=== PATIENT | male | born 1985 | race Caucasian/White ===

== ENCOUNTER 2019-06-10 19:50 | Emergency (ER) | payer OTHER, SELFPAY ==
[2019-06-10 20:20] VITALS: BP 144/77; PULSE 70; RESP 16; TEMP 36.6; O2SAT 98; BMI 22.6
--- NOTE | 2019-06-10 22:00 | ED_ITS ---
HPI - Anxiety General: Chief Complaint: Anxiety Stated Complaint: ANXIETY Time Seen by Provider: 06/10/19 21:51 History of Present Illness: Associated symptoms: Deny chest pain, chills, fever(s), headache(s), nausea or vomiting Review of Systems Const: Denies: fever, chills or body aches Eyes: Denies: change in vision or blurry vision ENMT: Denies: throat pain or nasal congestion Card: Denies: chest pain or shortness of breath on exertion Resp: Denies: shortness of breath, productive cough or non-productive cough GI: Denies: abdominal pain, nausea or vomiting : Denies: difficulty urinating Musc: Denies: extremity pain Skin/Breast: Denies: rash Neuro: Denies: headache Psych: Reports: anxiety; Denies: depression Sung/Lymph: Denies: easy bruising PFSH ED PFSH: Statuses (acute, chronic, etc) shown below reflect problem list status as previously entered and may not be historically accurate Social History Smoking and tobacco status: former smoker Physical Exam Const: COMMON NORMALS: no apparent distress, average body habitus and oriented x3 HENMT: COMMON NORMALS: normocephalic HEAD & SCALP: normal to inspection and normocephalic FACE & SINUS: normal facial exam Eye: COMMON NORMALS: conjunctivae normal GENERAL EYE: normal appearance of both eyes CONJUNCTIVA: Yes conjunctivae normal Neck/C-Spine: COMMON NORMALS: no JVD Chest: COMMONS NORMALS: inspection of chest normal Resp: COMMON NORMALS: normal respiratory effort and clear to auscultation bilaterally AUSCULTATION: clear to auscultation bilaterally Cardio: COMMON NORMALS: no JVD, regular rate and regular rhythm RATE: regular rate RHYTHM: regular rhythm GI: COMMON NORMALS: normal to inspection, nondistended, normoactive bowel sounds Extremity: COMMON NORMALS: normal to inspection and full ROM Neuro: COMMON NORMALS: oriented x3 Course Vital Signs: Vital signs: Vital Signs Temperature 97.8 F 06/10/19 20:20 Pulse Rate 60 06/10/19 22:36 Respiratory Rate 16 06/10/19 22:36 Blood Pressure 144/77 06/10/19 20:20 Pulse Oximetry 95 06/10/19 22:36 Discharge Plan Discharge Patient Disposition: Home, Self-Care Clinical Impression: Acute anxiety Condition: Stable Prescriptions: New sertraline 50 mg tablet 50 mg PO Q24H Qty: 14 RF: 0 No Action flecainide 100 mg tablet 100 mg PO BID RF: 0 Cartia XT 120 mg capsule,extended release 24hr 120 mg PO TID RF: 0 Discharge Orders: Discharge Order (Routine); Ordered 06/10/19 Ordered By: Bladimir Dao Patient Instructions: Generalized Anxiety Disorder (ED) Activity Restrictions/Additional Instructions: Patient take medication as prescribed. Follow-up with the primary care clinic in [place]. Can return here if problems persist. Discharge Date/Time: 06/10/19 22:36 Coding Level of Care Code ED Windshield Repair Technician for Damir Ray
[2019-06-10] MEDS: sertraline 50 mg Tablet PO (22:28)
[2019-06-10 22:36] VITALS: PULSE 60; RESP 16; O2SAT 95
== END 2019-06-10 22:36 | disposition home or self-care (01) ==
PROVIDERS: Emergency Provider Nurse Practitioner Family
DX: F41.9 Anxiety disorder, unspecified (principal); Z87.891 Personal history of nicotine dependence
CPT/HCPCS: 99281

== ENCOUNTER 2020-02-13 08:33 | Emergency (ER) | payer SELFPAY ==
[2020-02-13 08:38] VITALS: BP 131/79; PULSE 89; RESP 18; TEMP 36.4; O2SAT 98; BMI 23.0
[2020-02-13 08:49] VITALS: BP 131/79; PULSE 92; RESP 18; TEMP 36.8; O2SAT 99
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
[2020-02-13 08:55] VITALS: BP 136/84; PULSE 76; RESP 18; O2SAT 99
[2020-02-13] MEDS: HYDROcodone-acetaminophen 7.5-325 mg Tablet 1 TAB PO (09:22)
[2020-02-13 10:10] VITALS: BP 119/69; PULSE 76; RESP 18; TEMP 37; O2SAT 76
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
--- NOTE | 2020-03-01 08:08 | DCPLANNER ---
Patient had an appointment scheduled for 02.27.[address] Mario, ENT - patient did not attend appointment.
== END 2020-02-13 10:15 | disposition home or self-care (01) ==
PROVIDERS: Emergency Provider Physician Assistant; PCP Registered Nurse
DX: S00.03XA Contusion of scalp, initial encounter (principal); S05.12XA Contusion of eyeball and orbital tissues, left eye, initial encounter; S02.2XXA Fracture of nasal bones, initial encounter for closed fracture; Y04.2XXA Assault by strike against or bumped into by another person, initial encounter; F17.210 Nicotine dependence, cigarettes, uncomplicated
CPT/HCPCS: 12345; 70450; 70486; 72125; 99281; 99283

== ENCOUNTER 2020-05-25 13:23 | Emergency (ER) | payer SELFPAY ==
--- NOTE | 2020-05-25 13:45 | XRR_ITS ---
PROCEDURE INFORMATION: Exam: XR Right Shoulder Exam date and time: 05/25/2020 1:50 PM Age: 34 years old Clinical indication: Right; Patient HX: RT shoulder pain, arm gets numb TECHNIQUE: Imaging protocol: XR Right shoulder. Views: 2 or more views. COMPARISON: No relevant prior studies available. FINDINGS: Bones/joints: Negative for acute bony abnormality Soft tissues: Normal. XR/XR shoulder RT min 2V* [id number] IMPRESSION: No acute findings.
[2020-05-25 13:50] VITALS: BP 129/67; PULSE 102; RESP 16; TEMP 36.5; O2SAT 100; BMI 23.0
--- NOTE | 2020-05-25 13:58 | ED_ITS ---
HPI - Extremity Problem General: Chief complaint: Extremity Problem,Nontraumatic Stated complaint: R shoulder/arm pain Time Seen by Provider: 05/25/20 13:58 History of Present Illness: HPI Narrative: Patient is a 34-year-old male comes to the ED with right shoulder pain. Pain started last Sunday. Denies any trauma or injury to cause pain. Patient says he did a lot of heavy lifting about a week prior to onset of right shoulder pain. He rates pain a 6 out of 10. He says it starts in his shoulder and radiates down to his upper arm. In certain positions and when he is laying down he does get some numbness and tingling into his right hand. Associated symptoms: Deny chest pain, fever(s) or rash Review of Systems Const: Denies: fever(s), chills or fatigue Eyes: Denies: change in vision or eye discomfort ENMT: Denies: throat pain, odynophagia, nasal discharge or nasal congestion Card: Denies: chest pain, palpitations, edema, swelling of feet/ankles, dyspnea on exertion or orthopnea Resp: Denies: dyspnea, productive cough or non-productive cough GI: Denies: abdominal pain, nausea, vomiting, diarrhea, constipation or hematochezia : Denies: flank pain, difficulty urinating, dysuria or hematuria Musc: Reports: extremity pain (Right shoulder), joint pain (Right shoulder) and limited range of motion (Right shoulder due to pain.); Denies: neck pain, back pain or extremity swelling Skin/Breast: Denies: rash or new lesions Neuro: Denies: headache(s), numbness in extremities or weakness in extremities [facility] ED PFSH: Social History Smoking and tobacco status: current every day smoker cigarettes Packs smoked per day: 0.5 Alcohol intake: current Alcohol intake frequency: few times a month Substance/Drug Use: never Physical Exam Const: COMMON NORMALS: no acute distress, patient oriented x3, healthy appearing and alert GENERAL APPEARANCE: cooperative and comfortable HENMT: COMMON NORMALS: normocephalic HEAD & SCALP: normocephalic MOUTH: Normal oral and palatal mucosa present THROAT: posterior oropharynx normal and uvula midline Neck/C-Spine: COMMON NORMALS: supple GENERAL: Yes normal visual inspection Resp: COMMON NORMALS: normal respiratory effort, No retractions, No use of accessory muscles and clear to auscultation bilaterally AUSCULTATION: clear to auscultation bilaterally Cardio: COMMON NORMALS: regular rate, regular rhythm, S1 normal heart sound present, S2 normal heart sound present, No gallops present (Cardio), No clicks present (Cardio), No murmurs present (Cardio) and Peripheral pulses 2+ throughout RATE: regular rate RHYTHM: regular rhythm HEART SOUNDS: S1 normal heart sound present and S2 normal heart sound present PERIPHERAL PUL SES: Peripheral pulses 2+ throughout GI: COMMON NORMALS: Normal to inspection, nondistended, normoactive bowel sounds present, Soft to palpation, non-tender and no masses PALPATION: Yes Soft to palpation : COMMON NORMALS: Yes no CVA tenderness BLADDER/KIDNEY EXAM: Yes no CVA tenderness Back/Pelvis: COMMON NORMALS: no CVA tenderness Extremity: GENERAL: Yes normal exam except as noted RIGHT UPPER EXTREMITY: Yes shoulder joint Right shoulder: Yes Right shoulder joint inspection exam (No visible deformity, edema or ecchymosis seen. Tender on anterior aspect), Yes Right shoulder joint ROM exam (Limited abduction motion due to pain.) and Yes Right shoulder joint neurovascular exam (Intact, radial pulse 2+.) Neuro: COMMON NORMALS: patient oriented x3 and moves all extremities SENSORIUM/ORIENTATION: Yes alert Skin: GENERAL SKIN EXAM: dry skin Course Vital Signs: Vital signs: Vital Signs Temperature 97.7 F 05/25/20 13:50 Pulse Rate 102 H 05/25/20 13:50 Respiratory Rate 16 05/25/20 13:50 Blood Pressure 129/67 05/25/20 13:50 Pulse Oximetry 100 05/25/20 13:50 MDM - Extremity (Nontraumatic) MDM Narrative: Medical decision making narrative: Patient is a 34-year-old male comes to the ED with right shoulder pain. Denies any acute injury, but do es state he was lifting a lot of heavy stuff at work about a week prior to onset of symptoms. On exam patient has some tenderness to the anterior aspect of left shoulder and no other acute findings. Neurovascular distally intact in right arm. Limited range of motion with abduction due to pain. X-ray right shoulder showed no acute findings. Patient was given a shot of Toradol and Solu-Medrol w geo here in the ED. He sent home on a prescription for Robaxin, ibuprofen 800 and Medrol Dosepak. He was given shoulder sling to allow as rest for couple days. Return to ED precautions given. Follow-up with PCP in 7 to 10 days. Patient understood and agreed with plan. Imaging Data^: Xray Ortho: Attestation: I personally reviewed and interpreted this imaging study as follows: Radiologist's impression: [address] [place] [address] XRay Report Signed Patient: Drew Campos Unit #: [id number] : 1985 Age/Sex: 34 / M ADM Date: 05/25/20 Loc: ER Room/Bed: Attending Dr: Ordering Provider/Ordering MD: Carmen Landin DO Date of Service: 05/25/20 Procedure(s): XR shoulder RT min 2V* [id number] Accession Number(s): [id number] Report Number: [id number] PROCEDURE INFORMATION: Exam: XR Right Shoulder Exam date and time: 05/25/2020 1:50 PM Age: 34 years old Clinical indication: Right; Patient HX: RT shoulder pain, arm gets numb TECHNIQUE: Imaging protocol: XR Right shoulder. Views: 2 or more views. COMPARISON: No relevant prior studies available. FINDINGS: Bones/joints: Negative for acute bony abnormality Soft tissues: Normal. XR/XR shoulder RT min 2V* [id number] IMPRESSION: No acute findings. Dictated By: Sandeep Edwards Signed By: Sandeep Edwards Signed Date/Time: 05/25/201427 DD/ 25 Discharge Plan Discharge Patient Disposition: Home Clinical Impression: Acute pain of right shoulder Condition: Stable Prescriptions: New Medrol (Stephan) 4 mg tablets,dose pack See Rx Instructions .ROUTE .COMPLEX Qty: 21 RF: 0 methocarbamol 750 mg tablet 750 mg PO Q8H Qty: 21 RF: 0 ibuprofen 800 mg tablet 800 mg PO Q8H PRN (Reason: pain) Qty: 21 RF: 0 No Action flecainide 100 mg tablet 100 mg PO BID RF: 0 Cartia XT 240 mg Capsule,Extended Release 24hr 240 mg PO DAILY RF: 0 Discharge Orders: Discharge ED (Routine); Ordered 05/25/20 Ordered By: Tello Paulson Referrals: Brandon Castro FNP [Primary Care Provider] - Discharge Diet: Regular Discharge Activity: Increase activity as tolerated Patient Instructions: Shoulder Sprain (ED) Activity Restrictions/Additional Instructions: Follow-up with medical provider as directed in 7 to 10 days. Take medications as prescribed. You can start taking the Medrol Dosepak tomorrow morning, since I am giving you a dose of prednisolone here in the ED. Sending you home with methocarbamol which is a muscle relaxer and can cause drowsiness so take at night before bed. If you take methocarbamol during the day use with caution. Rest, ice shoulder daily. Wear sling for couple days to allow shoulder to rest. Make sure remove arm daily from sling and do range of motion exercises to help prevent shoulder freeze. Return to the ER or your medical provider if condition worsens. Please read and understand discharge instructions. If any questions, please ask. Coding Level of Care Code ED Loading Rack Supervisor for Damir Ray Exam Comprehensive
[2020-05-25 14:55] VITALS: PULSE 93
[2020-05-25] MEDS: ketorolac 60 mg/2 mL INJ IM (15:00)
[2020-05-25 15:19] VITALS: BP 129/67; PULSE 93; RESP 18; O2SAT 100
== END 2020-05-25 15:00 | disposition home or self-care (01) ==
PROVIDERS: Emergency Provider Physician Assistant; PCP Registered Nurse
DX: M25.511 Pain in right shoulder (principal); F17.210 Nicotine dependence, cigarettes, uncomplicated
CPT/HCPCS: 12345; 73030; 96372; 99281; 99283; J1885; J2930

== ENCOUNTER 2020-06-17 17:21 | Emergency (ER) | payer SELFPAY ==
[2020-06-17 17:28] VITALS: BP 135/77; PULSE 87; RESP 18; TEMP 36.9; O2SAT 96; BMI 23.0
[2020-06-17 17:31] VITALS: BP 125/81; PULSE 78; RESP 18; O2SAT 98
--- NOTE | 2020-06-17 18:03 | ECG_ITS ---
[facility] Test Date: 2020-06-17 Pat Name: Drew Campos Department: Room: Gender: Male Occupational Health Specialist: : 1985 Requested By: Marely Pak Order Number: [id number] Reading MD: MARYAM BELTRE Measurements Intervals [place] Rate: 76 P: 66 [place]: 161 QRS: 97 QRSD: 104 T: 42 QT: 334 QTc: 377 Interpretive Statements SINUS RHYTHM WITH SINUS ARRHYTHMIA BORDERLINE RIGHT AXIS DEVIATION [QRS AXIS > 90] Compared to ECG 04/29/2019 21:33:37 Intraventricular conduction delay no longer present Electronically Signed On 06-17-2020 20:27:26 FLIGHT SERVICE AGENT by MARYAM BELTRE [id number] f
--- NOTE | 2020-06-17 18:03 | XR_ITS ---
WS: [id number] Portable AP upright chest, 06/17/2020 Clinical Data: cp Comparison: Orbital chest, 04/29/2019. Findings: No nodules, masses or effusions are seen. The heart is normal. The pulmonary vascularity is not increased. No pneumonia or pneumothorax is seen. Monitor leads are on the chest wall. XR/XR chest 1V portable [id number] Impression: Negative chest.
--- NOTE | 2020-06-17 18:16 | W.ED.CHESTPA ---
HPI - Chest Pain General: Chief Complaint: Chest Pain Stated Complaint: TIGHT CP, AFIB HX, SORE THROAT, COUGH Time Seen by Provider: 06/17/20 18:16 History of Present Illness: HPI narrative: Patient is a 34-year-old male comes to the ED with chest pain. Patient has a past medical history of A. fib. Patient says he woke up today with centralized chest pain. Pain was 8 out of 10 but it has been going down since he got here to the ED. He says currently that his chest pain is a 6 out of 10. Endorses some shortness of breath. Denies any heart palpitations. Patient was told by his heart doctor that he is going to have to reschedule his ablation due to lack of insurance. He did say he just found this out which has caused him a little stress. Denies fever, chills, cough, nausea/vomiting, abdominal pain, bladder or bowel symptoms. Associated symptoms: Reports dyspnea; Deny abdominal pain, fever(s), nausea, palpitations or vomiting Review of Systems Const: Denies: fever(s), chills or fatigue Eyes: Denies: change in vision or eye discomfort ENMT: Denies: throat pain, odynophagia, nasal discharge or nasal congestion Card: Reports: chest pain; Denies: palpitations, edema, swelling of feet/ankles, dyspnea on exertion or orthopnea Resp: Reports: dyspnea; Denies: productive cough or non-productive cough GI: Denies: abdominal pain, nausea, vomiting, diarrhea, constipation or hematochezia : Denies: flank pain, difficulty urinating, dysuria or hematuria Musc: Denies: neck pain, back pain or extremity swelling Skin/Breast: Denies: rash or new lesions Neuro: Denies: headache(s), numbness in extremities or weakness in extremities PFS ED PFSH: Social History Smoking and tobacco status: current every day smoker cigarettes Packs smoked per day: 0.5 Alcohol intake: current Alcohol intake frequency: few times a month Physical Exam Const: COMMON NORMALS: no acute distress, patient oriented x3, healthy appearing and alert GENERAL APPEARANCE: cooperative and comfortable HENMT: COMMON NORMALS: normocephalic HEAD & SCALP: normocephalic MOUTH: Normal oral and palatal mucosa present THROAT: posterior oropharynx normal and uvula midline Eye: COMMON NORMALS: Equal, round and reactive pupils present PUPIL: Yes Equal, round and reactive pupils present Neck/C-Spine: COMMON NORMALS: supple GENERAL: Yes normal visual inspection Chest: CHEST: No tenderness Resp: COMMON NORMALS: normal respiratory effort, No retractions, No use of accessory muscles and clear to auscultation bilaterally EFFORT & INSPECTION: Yes able to speak in complete sentences, No tachypneic, No respiratory distress and No labored AUSCULTATION: clear to auscultation bilaterally Cardio: COMMON NORMALS: regular rate, S1 normal heart sound present, S2 normal heart sound present, No gallops present (Cardio), No clicks present (Cardio), No murmurs present (Cardio) and Peripheral pulses 2+ throughout RATE: regular rate RHYTHM: abnormal rhythm irregularly irregular HEART SOUNDS: S1 normal heart sound present and S2 normal heart sound present PERIPHERAL PULSES: Peripheral pulses 2+ throughout GI: COMMON NORMALS: Normal to inspection, nondistended, normoactive bowel sounds present, Soft to palpation, non-tender and no masses PALPATION: Yes Soft to palpation : COMMON NORMALS: Yes no CVA tenderness BLADDER/KIDNEY EXAM: Yes no CVA tenderness Back/Pelvis: COMMON NORMALS: no CVA tenderness Extremity: COMMON NORMALS: normal to inspection and no pedal edema Neuro: COMMON NORMALS: patient oriented x3 and moves all extremities SENSORIUM/ORIENTATION: Yes alert Skin: GENERAL SKIN EXAM: dry skin Course Vital Signs: Vital signs: Vital Signs Temperature 98.4 F 06/17/20 17:28 Pulse Rate 73 06/17/20 20:03 Respiratory Rate 20 H 06/17/20 20:03 Blood Pressure 133/92 06/17/20 20:03 Pulse Oximetry 96 06/17/20 20:03 MDM - Chest Pain MDM Narrative: Medical decision making narrative: Patient is a 34-year-old male comes to the ED with chest pain. He has a history of A. fib. Patient reports going through some financial stress currently. Chest wall was nontender to palpation. EKG shows sinus rhythm with sinus arrhythmia, [address] segment elevation or depression seen. Chest x-ray showed no acute findings. White blood cell count 12.2 and rest of CBC and CMP were unremarkable. Troponin negative. Patient sees a salmon gillnet vessel operator and was scheduled to get an ablation, but due to insurance issues he had to get it rescheduled. His chest pain improved greatly after IV morphine. Patient was discharged with noncardiac chest pain and told to follow-up with his PCP 7 to 10 days for reevaluation. Return to ED precautions given. Patient understood agree with plan. Lab Data: Attestation: I reviewed the patient's lab results. Labs: Lab Results 06/17/20 06/17/20 06/17/20 Range/Units 18:20 18:20 18:20 WBC 12.2 H (4.0-10.0) 10^3/ uL RBC 4.99 (4.1-5.3) 10^6/u L Hgb 15.1 (11.7-16.6) g/dL Hct 44.6 (42.0-52.0) % MCV 89.4 (80-94) fL MCH 30.3 (28.0-34.0) pg MCHC 33.9 (30.0-36.0) g/dL RDW 11.7 L (12.1-15.1) % Plt Count 229 (130-400) 10^3/c mm MPV 8.7 (7.4-10.4) fL Neut % (Auto) 70.2 % Lymph % (Auto) 18.3 % [place] % (Auto) 8.3 % Eos % (Auto) 2.6 % Baso % (Auto) 0.4 % Neut # (Auto) 8.54 H (1.8-7.7) 10^3/u L Lymph # (Auto) 2.2 (0.8-4.8) 10^3/u L [place] # (Auto) 1.0 H (0.2-0.9) 10^3/u L Eos # (Auto) 0.3 (0.0-0.8) 10^3/u L Baso # (Auto) 0.1 (0.0-0.1) 10^3/u L Nucleated RBC % (a uto) 0 % Nucleated RBCs # 0.0 /100WBC PT 13.40 (12.1-14.9) SECO NDS INR 0.99 (0.8-1.2) Sodium 139 (136-145) mmol/L Potassium 4.4 (3.5-5.1) mmol/L Chloride 105 (98-107) mmol/L Carbon Dioxide 25 (22-29) mmol/L Anion Gap 13.4 (5-19) BUN 18 (6-20) mg/dL Creatinine 0.6 L (0.7-1.2) mg/dL GFR Calculation 156.1 H (90-130) mL/min Glucose 106 (65-115) mg/dL Calculated Osmolal ity 290 (285-295) mOsm/k g Calcium 9.2 (8.5-10.5) mg/dL Total Bilirubin 0.3 (0.15-1.2) mg/dL AST 13 (0-40) U/L ALT 12 (0-41) U/L Alkaline Phosphata se 63 (40-130) IU/L Troponin T Baselin e (0-15) ng/L Total Protein 6.3 L (6.6-8.7) g/dL Albumin 4.2 (3.5-5.2) g/dL Globulin 2.1 (1.3-4.6) g/dL 06/17/20 Range/Units 18:20 WBC (4.0-10.0) 10^3/ uL RBC (4.1-5.3) 10^6/u L Hgb (11.7-16.6) g/dL Hct (42.0-52.0) % MCV (80-94) fL MCH (28.0-34.0) pg MCHC (30.0-36.0) g/dL RDW (12.1-15.1) % Plt Count (130-400) 10^3/c mm MPV (7.4-10.4) fL Neut % (Auto) % Lymph % (Auto) % [place] % (Auto) % Eos % (Auto) % Baso % (Auto) % Neut # (Auto) (1.8-7.7) 10^3/u L Lymph # (Auto) (0.8-4.8) 10^3/u L [place] # (Auto) (0.2-0.9) 10^3/u L Eos # (Auto) (0.0-0.8) 10^3/u L Baso # (Auto) (0.0-0.1) 10^3/u L Nucleated RBC % (a uto) % Nucleated RBCs # /100WBC PT (12.1-14.9) SECO NDS INR (0.8-1.2) Sodium (136-145) mmol/L Potassium (3.5-5.1) mmol/L Chloride (98-107) mmol/L Carbon Dioxide (22-29) mmol/L Anion Gap (5-19) BUN (6-20) mg/dL Creatinine (0.7-1.2) mg/dL GFR Calculation (90-130) mL/min Glucose (65-115) mg/dL Calculated Osmolal ity (285-295) mOsm/k g Calcium (8.5-10.5) mg/dL Total Bilirubin (0.15-1.2) mg/dL AST (0-40) U/L ALT (0-41) U/L Alkaline Phosphata se (40-130) IU/L Troponin T Baselin e 6 (0-15) ng/L Total Protein (6.6-8.7) g/dL Albumin (3.5-5.2) g/dL Globulin (1.3-4.6) g/dL Imaging Data^: CXR: Attestation: I personally reviewed and interpreted this imaging study as follows: My impression: Chest x-ray showed no acute findings. EKG Data^: EKG 1: Attestation: I personally reviewed and interpreted this EKG as follows: EKG interpretation date: 06/17/20 Interpretation: Sinus rhythm with sinus arrhythmia. [address] segment elevation or depression seen. Discharge Plan Discharge Patient Disposition: Home Clinical Impression: Chest pain, non-cardiac Condition: Stable Prescriptions: No Action flecainide 100 mg tablet 100 mg PO BID@0700,1900 RF: 0 diltiazem HCl [Cartia XT] 240 mg Capsule,Extended Release 24hr 240 mg PO DAILY@0700 RF: 0 Advil 200 mg Tablet 200 mg PO Q6H PRN (Reason: Pain) RF: 0 Discharge Orders: Discharge ED (Routine); Ordered 06/17/20 Ordered By: Tello Paulson Referrals: Brandon Castro [facility] [Primary Care Provider] - Discharge Diet: Regular Discharge Activity: Resume usual activity Patient Instructions: Noncardiac Chest Pain (ED) Activity Restrictions/Additional Instructions: Follow-up with medical provider as directed in 5 to 7 days for reevaluation. Continue taking all home medications as previously prescribed. Return to the ER or your medical provider if condition worsens. Please read and understand discharge instructions. If any questions, please ask. Coding Level of Care Code ED Employment Evaluator/Case Manager for Damir Fwd Exam Comprehensive
[2020-06-17 18:29] VITALS: BP 125/81; PULSE 80; RESP 18; O2SAT 98
[2020-06-17 18:43] VITALS: RESP 18; O2SAT 97
[2020-06-17] MEDS: morphine 4 mg/mL SDV 1 mL IVP (18:43)
[2020-06-17] MEDS: ondansetron 2 mg/ML SDV 2 mL 4 MG IVP (18:43)
[2020-06-17 18:46] LABS: Basophils # 0.1 10^3/uL (0.0-0.1); Basophils % 0.4 %; Eosinophils # 0.3 10^3/uL (0.0-0.8); Eosinophils % 2.6 %; Hematocrit 44.6 % (42.0-52.0); Hemoglobin 15.1 g/dL (11.7-16.6); Lymphocytes # 2.2 10^3/uL (0.8-4.8); Lymphocytes % 18.3 %; Mean Corpuscular HGB Conc 33.9 g/dL (30.0-36.0); Mean Corpuscular Hemoglobin 30.3 pg (28.0-34.0); Mean Corpuscular Volume 89.4 fL (80-94); Mean Platelet Volume 8.7 fL (7.4-10.4); Monocytes % 8.3 %; Neutrophils # 8.54 10^3/uL (1.8-7.7); Neutrophils % 70.2 %; Nucleated Red Blood Cells % 0 %; Platelet Count 229 10^3/cmm (130-400); Red Blood Count 4.99 10^6/uL (4.1-5.3); Red Cell Distribution Width 11.7 % (12.1-15.1); White Blood Count 12.2 10^3/uL (4.0-10.0)
[2020-06-17 19:35] LABS: Alanine Aminotransferase 12 U/L (0-41); Albumin Level 4.2 g/dL (3.5-5.2); Alkaline Phosphatase 63 IU/L (40-130); Anion Gap 13.4 (5-19); Aspartate Amino Transferase 13 U/L (0-40); Blood Urea Nitrogen 18 mg/dL (6-20); Calcium 9.2 mg/dL (8.5-10.5); Carbon Dioxide 25 mmol/L (22-29); Chloride 105 mmol/L (98-107); Globulin 2.1 g/dL (1.3-4.6); Glomerular Filtration Rate 156.1 mL/min (90-130); Glucose 106 mg/dL (65-115); Osmolality Calculated 290 mOsm/kg (285-295); Potassium 4.4 mmol/L (3.5-5.1); Sodium 139 mmol/L (136-145); Total Bilirubin 0.3 mg/dL (0.15-1.2); Total Protein 6.3 g/dL (6.6-8.7); Troponin(5th) Baseline 6 ng/L (0-15)
[2020-06-17 19:52] LABS: INR 0.99 (0.8-1.2)
[2020-06-17 20:03] VITALS: BP 133/92; PULSE 73; RESP 20; O2SAT 96
== END 2020-06-17 20:04 | disposition home or self-care (01) ==
PROVIDERS: Emergency Medicine; Emergency Provider Physician Assistant; PCP Registered Nurse
DX: R07.89 Other chest pain (principal); F17.210 Nicotine dependence, cigarettes, uncomplicated
CPT/HCPCS: 12345; 71045; 80053; 84484; 85025; 85610; 93005; 96374; 96375; 99282; 99284; J2270; J2405

== ENCOUNTER 2020-10-14 16:10 | Emergency (ER) | payer SELFPAY ==
[2020-10-14 16:38] VITALS: BP 129/85; PULSE 89; RESP 18; TEMP 36.7; O2SAT 97; BMI 24.4
--- NOTE | 2020-10-14 17:00 | ECG_ITS ---
[facility] Test Date: 2020-10-14 Pat Name: Drew Campos Department: Room: Gender: Male Photography Manager: : 1985 Requested By: Medardo Cueva Order Number: [id number] Ashley MD: Marek Dyer M.D. Measurements Intervals [place] Rate: 89 P: 76 [place]: 161 QRS: 105 QRSD: 98 T: 51 QT: 336 QTc: 410 Interpretive Statements SINUS RHYTHM POSSIBLE RIGHT VENTRICULAR HYPERTROPHY [SOME/ALL OF: PROMINENT R IN V1, LATE TRANSITION, RAD, TAVIA, SSS] Compared to ECG 06/17/2020 17:25:54 Atrial abnormality now present Sinus arrhythmia no longer present Electronically Signed On 10-15-2020 21:55:51 CDT by Marek Dyer M.D. [id number] f
--- NOTE | 2020-10-14 17:00 | XRR_ITS ---
PROCEDURE INFORMATION: Exam: XR Chest Exam date and time: 10/14/2020 5:19 PM Age: 35 years old Clinical indication: Pain; Left-sided; Additional info: Dyspnea/cough TECHNIQUE: Imaging protocol: XR of the chest. Views: 1 view. COMPARISON: No relevant prior studies available. FINDINGS: Lungs: Mildly hyperaerated lungs consistent with deep inspiratory effort vs reactive airway disease vs mild COPD . Pleural spaces: Unremarkable. No pleural effusion. No pneumothorax. Heart/Mediastinum: Unremarkable. No cardiomegaly. Bones/joints: Idiopathic S-shaped scoliosis. XR/XR chest 1V portable [id number] IMPRESSION: Mildly hyperaerated lungs consistent with deep inspiratory effort vs reactive airway disease vs mild COPD .
[2020-10-14 17:43] LABS: Basophils # 0.1 10^3/uL (0.0-0.1); Basophils % 0.6 %; Eosinophils # 0.7 10^3/uL (0.0-0.8); Eosinophils % 4.5 %; Hematocrit 49.1 % (42.0-52.0); Hemoglobin 16.7 g/dL (11.7-16.6); Lymphocytes # 1.3 10^3/uL (0.8-4.8); Lymphocytes % 8.4 %; Mean Corpuscular Volume 88.2 fL (80-94); Mean Platelet Volume 8.7 fL (7.4-10.4); Monocytes # 1.7 10^3/uL (0.2-0.9); Neutrophils # 11.45 10^3/uL (1.8-7.7); Neutrophils % 75.2 %; Nucleated Red Blood Cells % 0 %; Platelet Count 244 10^3/cmm (130-400); Red Blood Count 5.57 10^6/uL (4.1-5.3); Red Cell Distribution Width 11.9 % (12.1-15.1); White Blood Count 15.2 10^3/uL (4.0-10.0)
[2020-10-14 18:03] LABS: Alanine Aminotransferase 12 U/L (0-41); Albumin Level 4.6 g/dL (3.5-5.2); Alkaline Phosphatase 90 IU/L (40-130); Anion Gap 13.1 (5-19); Aspartate Amino Transferase 16 U/L (0-40); Blood Urea Nitrogen 21 mg/dL (6-20); Carbon Dioxide 27 mmol/L (22-29); Chloride 100 mmol/L (98-107); Glomerular Filtration Rate 129.9 mL/min (90-130); Glucose 89 mg/dL (65-115); Osmolality Calculated 284 mOsm/kg (285-295); Potassium 4.1 mmol/L (3.5-5.1); Sodium 136 mmol/L (136-145); Total Bilirubin 0.4 mg/dL (0.15-1.2); Total Protein 7.6 g/dL (6.6-8.7); Troponin(5th) Baseline 6 ng/L (0-15)
--- NOTE | 2020-10-14 19:42 | W.ED.CHESTPA ---
HPI - Chest Pain General: Chief Complaint: Chest Pain Stated Complaint: CP, AFIB Time Seen by Provider: 10/14/20 19:21 Source: patient Mode of arrival: ambulatory Limitations: no limitations History of Present Illness: HPI narrative: 35-year-old male states he has a history of A. fib and has been out of his flecainide and Cardizem over the last 2 weeks. He states he is concerned as he is having some palpitations today and really wanted a refill of his medicine. He states his palpitations improved. He had some chest pain earlier today but is now resolved. He states he is scheduled for an ablation next month. Denies any fever. Denies any shortness of breath. Associated symptoms: Reports palpitations; Deny abdominal pain, dyspnea, fever(s), nausea or vomiting Review of Systems Const: Denies: fever(s), chills, body aches or change in appetite Eyes: Denies: blurry vision or eye discomfort ENMT: Denies: throat pain or dental pain Card: Reports: palpitations; Denies: chest pain Resp: Denies: dyspnea GI: Denies: abdominal pain, nausea, vomiting or diarrhea : Denies: dysuria Musc: Denies: neck pain or back pain Skin/Breast: Denies: rash Neuro: Denies: headache(s) Psych: Denies: depression Sung/Lymph: Denies: easy bruising All/Imm: Denies: urticaria PFSH ED PFSH: Social History Smoking and tobacco status: current every day smoker cigarettes Packs smoked per day: 0.5 Alcohol intake: current Alcohol intake frequency: few times a month Physical Exam Const: COMMON NORMALS: no acute distress, patient oriented x3 and healthy appearing HENMT: COMMON NORMALS: normocephalic and atraumatic HEAD & SCALP: normocephalic and atraumatic Eye: COMMON NORMALS: Equal, round and reactive pupils present and EOMs intact bilaterally PUPIL: Yes Equal, round and reactive pupils present Neck/C-Spine: COMMON NORMALS: full ROM and supple Chest: COMMONS NORMALS: normal inspection of the chest and normal palpation of entire chest wall Resp: COMMON NORMALS: normal respiratory effort, No retractions, No use of accessory muscles and clear to auscultation bilaterally AUSCULTATION: clear to auscultation bilaterally Cardio: COMMON NORMALS: regular rate, regular rhythm and No murmurs present (Cardio) RATE: regular rate RHYTHM: regular rhythm GI: COMMON NORMALS: Normal to inspection, nondistended, normoactive bowel sounds present, Soft to palpation, non-tender and no masses PALPATION: Yes Soft to palpation Extremity: COMMON NORMALS: normal to inspection and full ROM Neuro: COMMON NORMALS: patient oriented x3, moves all extremities and no focal motor deficits Psych: COMMON NORMALS: mental status grossly normal, Normal thought process present and cooperative THOUGHT PROCESS: Normal thought process present Skin: COMMON NORMALS: no rashes or lesions noted and no wounds GENERAL SKIN EXAM: no rashes or lesions noted Course Vital Signs: Vital signs: Vital Signs Temperature 98.0 F 10/14/20 16:38 Pulse Rate 89 10/14/20 16:38 Respiratory Rate 18 10/14/20 16:38 Blood Pressure 129/85 10/14/20 16:38 Pulse Oximetry 97 10/14/20 16:38 MDM - Chest Pain MDM Narrative: Medical decision making narrative: Patient presents here with palpitations. He is not in A. fib here. Patient given a dose of his flecainide and Cardizem here and will prescribe him refills as well. He stable for discharge return if worsening. Lab Data: Labs: Lab Results 10/14/20 10/14/20 10/14/20 Range/Units 17:35 17:35 17:35 WBC 15.2 H (4.0-10.0) 10^3/ uL RBC 5.57 H (4.1-5.3) 10^6/u L Hgb 16.7 H (11.7-16.6) g/dL Hct 49.1 (42.0-52.0) % MCV 88.2 (80-94) fL MCH 30.0 (28.0-34.0) pg MCHC 34.0 (30.0-36.0) g/dL RDW 11.9 L (12.1-15.1) % Plt Count 244 (130-400) 10^3/c mm MPV 8.7 (7.4-10.4) fL Neut % (Auto) 75.2 % Lymph % (Auto) 8.4 % [place] % (Auto) 11.0 % Eos % (Auto) 4.5 % Baso % (Auto) 0.6 % Neut # (Auto) 11.45 H (1.8-7.7) 10^3/u L Lymph # (Auto) 1.3 (0.8-4.8) 10^3/u L [place] # (Auto) 1.7 H (0.2-0.9) 10^3/u L Eos # (Auto) 0.7 (0.0-0.8) 10^3/u L Baso # (Auto) 0.1 (0.0-0.1) 10^3/u L Nucleated RBC % (a uto) 0 % Nucleated RBCs # 0.0 /100WBC Sodium 136 (136-145) mmol/L Potassium 4.1 (3.5-5.1) mmol/L Chloride 100 (98-107) mmol/L Carbon Dioxide 27 (22-29) mmol/L Anion Gap 13.1 (5-19) BUN 21 H (6-20) mg/dL Creatinine 0.7 (0.7-1.2) mg/dL GFR Calculation 129.9 (90-130) mL/min Glucose 89 (65-115) mg/dL Calculated Osmolal ity 284 L (285-295) mOsm/k g Calcium 9.0 (8.5-10.5) mg/dL Total Bilirubin 0.4 (0.15-1.2) mg/dL AST 16 (0-40) U/L ALT 12 (0-41) U/L Alkaline Phosphata se 90 (40-130) IU/L Troponin T Baselin e 6 (0-15) ng/L Total Protein 7.6 (6.6-8.7) g/dL Albumin 4.6 (3.5-5.2) g/dL Globulin 3.0 (1.3-4.6) g/dL EKG Data^: EKG 1: Attestation: I personally reviewed and interpreted this EKG as follows: EKG interpretation date: 10/14/20 EKG interpretation time: 16:37 Interpretation: nsr hr [address] or t wave abnormalities qrs 98 qtc 383 Discharge Plan Discharge Patient Disposition: Home Clinical Impression: Palpitations Condition: Stable Prescriptions: Continued Cartia XT 240 mg Capsule,Extended Release 24hr 240 mg PO DAILY@0700 Qty: 60 RF: 0 flecainide 100 mg tablet 100 mg PO BID@0700,1900 Qty: 60 RF: 0 No Action Advil 200 mg Tablet 200 mg PO Q6H PRN (Reason: Pain) RF: 0 Discharge Orders: Discharge ED (Routine); Ordered 10/14/20 Ordered By: Marely Pak Discharge Diet: Advance as tolerated Discharge Activity: Resume usual activity Patient Instructions: Palpitations (ED) Coding Level of Care Code ED [employer] for Damir Ray
[2020-10-14] MEDS: flecainide 100 mg Tablet PO (19:52)
[2020-10-14] MEDS: dilTIAZem ER (24HR) 240 mg Capsule PO (19:53)
[2020-10-14 20:13] LABS: Troponin 5 2HR Delta 0 ABS# (0-10)
== END 2020-10-14 20:09 | disposition home or self-care (01) ==
PROVIDERS: Family Medicine; Emergency Provider Emergency Medicine
DX: R00.2 Palpitations (principal); F17.210 Nicotine dependence, cigarettes, uncomplicated
CPT/HCPCS: 36415; 71045; 80053; 84484; 85025; 93005; 99283

== ENCOUNTER 2021-01-11 06:46 | Emergency (ER) | payer MEDICAID, SELFPAY ==
[2021-01-11 06:53] VITALS: BP 152/82; PULSE 83; RESP 16; TEMP 36.6; O2SAT 98; BMI 24.4
[2021-01-11 06:55] VITALS: BP 138/81; PULSE 70; O2SAT 99
--- NOTE | 2021-01-11 07:46 | ED_ITS ---
HPI - Back Pain/Injury General: Chief Complaint: Back Pain/Injury Stated Complaint: Back Pain Time Seen by Provider: 01/11/21 07:04 History of Present Illness: HPI Narrative: 35-year-old male presents emergency complaining of low back pain that began yesterday. No precipitating event or trauma. Pain began suddenly it radiates down into the buttocks but not into the not into the legs he has not had any difficulty with bowel or bladder. years ago he had a fall where he had some back trouble but it seemed to resolve with conservative therapies never had any imaging or procedures done on his back. He denies any pain down into the toes. He notes the pain is much worse with motion. No fecal incontinence no urinary retention. MD elicited complaint: back pain Pertinent past history: prior back pain Onset (ago): hour(s) Timing: constant Severity: moderate Quality: spasming Location: lumbar spine Radiation: none Exacerbating factors: movement and walking Relieving factors: supine Associated symptoms: Deny abdominal pain, arthralgias, chills, change in bowel habits, difficulty walking, dysuria, fatigue, fecal incontinence, fever(s), hematuria, myalgias, nausea, numbness, syncope, tingling/numbness/burning, urinary frequency, urinary urgency or vomiting Treatments prior to arrival: NSAIDS and acetaminophen Review of Systems Const: Denies: fever(s), chills or fatigue ENMT: Denies: throat pain, ear or mastoid pain, nasal discharge or nasal congestion Card: Denies: syncope Resp: Denies: dyspnea, productive cough or non-productive cough GI: Denies: abdominal pain, nausea, vomiting, fecal incontinence or change in bowel habits : Denies: dysuria, urinary urgency or hematuria Skin/Breast: Denies: rash or pruritus Neuro: Denies: difficulty walking PFSH ED PFSH: Social History Smoking and tobacco status: current every day smoker cigarettes Packs smoked per day: 0.5 Alcohol intake: current Alcohol intake frequency: few times a month Physical Exam Const: COMMON NORMALS: no acute distress GENERAL APPEARANCE: cooperative and comfortable ORIENTATION/CONSCIOUSNESS: Yes awake, Yes oriented to person, Yes oriented to place and Yes oriented to time HENMT: COMMON NORMALS: normocephalic, atraumatic and hearing grossly normal bilaterally HEAD & SCALP: normocephalic and atraumatic Neck/C-Spine: COMMON NORMALS: no JVD Lymph: LYMPHATIC: no lymphadenopathy noted and no lymphedema noted Resp: COMMON NORMALS: normal respiratory effort, No retractions, No use of accessory muscles and clear to auscultation bilaterally AUSCULTATION: clear to auscultation bilaterally Cardio: COMMON NORMALS: no JVD, regular rate, regular rhythm and No murmurs present (Cardio) RATE: regular rate RHYTHM: regular rhythm GI: COMMON NORMALS: Soft to palpation and No hepatosplenomegaly present AUSCULTATION: Yes normoactive bowel sounds PALPATION: Yes Soft to palpation, No Tenderness to palpation present (GI), No Guarding due to palpation present (GI) and Yes No hepatosplenomegaly present Extremity: COMMON NORMALS: normal to inspection, capillary refill normal, no clubbing, cyanosis or edema, no calf tenderness and no pedal edema Neuro: SENSORIUM/ORIENTATION: Yes oriented to person, Yes oriented to place and Yes oriented to time OTHER: Deep tendon reflex flexes lower extremities +2/4 sensation normal negative straight leg raising. Skin: COMMON NORMALS: no rashes or lesions noted GENERAL SKIN EXAM: no rashes or lesions noted Course Vital Signs: Vital signs: Vital Signs Temperature 97.9 F 01/11/21 06:53 Pulse Rate 69 01/11/21 08:26 Respiratory Rate 17 01/11/21 08:26 Blood Pressure 120/74 01/11/21 08:26 Pulse Oximetry 97 01/11/21 08:26 MDM - Back Pain/Injury MDM Narrative: Medical decision making narrative: No focal neurologic deficits discharge prednisone pain medications follow-up with primary care worsening symptoms return. Discharge Plan Discharge Patient Disposition: Home Clinical Impression: Strain of lumbar region Condition: Stable Prescriptions: New hydrocodone-acetaminophen 5-325 mg tablet 1 tab PO Q6H PRN (Reason: pain) Qty: 20 RF: 0 diclofenac sodium 75 mg tablet,delayed release (DR/EC) 75 mg PO Q12H PRN (Reason: pain) Qty: 20 RF: 0 tizanidine 4 mg capsule 4 mg PO Q6H PRN (Reason: muscle spasticity) Qty: 30 RF: 0 prednisone 20 mg tablet 20 mg PO TID Qty: 15 RF: 0 No Action Advil 200 mg Tablet 200 mg PO Q6H PRN (Reason: Pain) RF: 0 Cartia XT 240 mg Capsule,Extended Release 24hr 240 mg PO DAILY@0700 Qty: 60 RF: 0 flecainide 100 mg tablet 100 mg PO BID@0700,1900 Qty: 60 RF: 0 Discharge Orders: Discharge ED (Routine); Ordered 01/11/21 Ordered By: Medardo Rodriguez Patient Instructions: Opioid Safety Coding Level of Care Code ED Supervisor [employer] for Damir Ray
[2021-01-11 07:51] VITALS: BP 130/77; PULSE 69; RESP 16; O2SAT 98
[2021-01-11 08:16] VITALS: RESP 16
[2021-01-11] MEDS: morphine 4 mg/mL SDV 1 mL IM (08:16)
[2021-01-11] MEDS: dexamethasone 10 mg/mL INJ IM (08:17)
[2021-01-11] MEDS: orphenadrine 30 mg/mL Inj 2 mL 60 MG IM (08:17)
[2021-01-11 08:26] VITALS: BP 120/74; PULSE 69; RESP 17; O2SAT 97
== END 2021-01-11 08:26 | disposition home or self-care (01) ==
PROVIDERS: Emergency Provider Family Medicine
DX: S39.012A Strain of muscle, fascia and tendon of lower back, initial encounter (principal); F17.210 Nicotine dependence, cigarettes, uncomplicated; X58.XXXA Exposure to other specified factors, initial encounter
CPT/HCPCS: 96372; 99283; J1100; J2270; J2360